=== PATIENT | male | born 1965 | race Caucasian/White ===

== ENCOUNTER 2019-05-05 23:06 | Emergency (ER) | payer SELFPAY ==
--- NOTE | 2019-05-05 23:16 | ED Physician Documentation ---
Eye Problem - HISTORIAN Historian: patient, spouse - HPI Chief Complaint: Eye Problems Additional Information: Patient presents to the ER with c/o eyes burning s/p messing with chemicals this morning while moving grass. He c/o bilateral eye pain with redness, erythema, and itchy. Checked pH of both eyes- 7. Onset: hours (This morning around 7:30) Associated symptoms: pain, burining, redness, sensitivity to light, blurred vision Location: both eyes Severity: moderate Apparent Injury: yes Context: chemical exposure Where: work - ROS CONST: no problems MS/SKIN/LYMPH: denies: weakness CVS/RESP: none EYES/ENT: none GI/: denies: nausea, vomiting NEURO: denies: headache - PAST HX Past History: diabetes Type 2, hypertension Immunizations: UTD. denies: tetanus Allergies/Adverse Reactions: Allergies Allergy/AdvReac Type Severity Reaction Status Date / Time No Known Allergies Allergy Verified 05/05/19 23:54 Home Medications: Ambulatory Orders Medication Instructions Recorded Lisinopril/Hydrochlorothiazide 1 each PO DAILY 05/07/19 [Zestoretic] Metformin HCl 500 mg PO DAILY 05/07/19 - SOCIAL HX Smoking History: non-smoker Alcohol Use: none Drug Use: none - FAMILY HX Family History: none - REVIEWED ASSESSMENTS Nursing Assessment Reviewed: Yes Vitals Reviewed: Yes Procedures - Eye Procedure Alcaine Drops Administered: Yes Eye Irrigated w/ Saline (ccs): 500 (500 each eye with emiliano lens) Antibiotic Oinment/Drps Admin: both eyes Progress: patient tolerated well ED Results Lab/Radiology - Orders Orders: ED Orders Category Date Time Status NORMAL SALINE @ 500 MLS/HR(500ml BOLUS) Med 05/05/19 23:11 Ordered 0.9 % Sodium Chloride [Normal Saline] 500 ml IV NOW NORMAL SALINE @ 500 MLS/HR(500ml BOLUS) Med 05/05/19 23:12 Ordered 0.9 % Sodium Chloride [Normal Saline] 500 ml IV NOW Tetracaine 0.5% Opth [Pontocaine Pf 0.5% Opth] Med 05/05/19 23:11 Once 2 drop OU NOW ONE Eye Problem Physical Exam - Physical Exam General Appearance: moderate distress Visual Acuity: see nursing assessment Eyelids: erythema (L), erythema (R) Conjunctiva and Sclera: injected (R), injected (L), exudate (R), exudate (L) Corneas: nml inspection, fluorescein dye uptake (L), fluorescein dye uptake (R), examined with fluorescein (R), examined with fluorescein (L) EOM: intact Pupils: equal Anterior Chambers: nml inspection Post Segments: nml funduscopic (R) Head/ENT: nml inspection, pharynx nml Skin: nml color, warm Neck/Back: nml inspection Respiratory: breath sounds normal CVS: heart sounds normal Neuro/Psych: oriented x3, neuro intact, mood/affect nml Discharge Clincal Impression: Acute chemical conjunctivitis of both eyes Referrals: Primary Doctor,No [Primary Care Provider] - 2 Days Additional Instructions: Well child check Bump on head Patient is playful and active Follow up with [employer] as needed Condition: Good Disposition: 01 HOME, SELF-CARE Decision to Admit: NO Decision Time: 23:53
[2019-05-05 23:54] VITALS: BP 144/69
[2019-05-05] MEDS: TETRACAINE 0.5% OPTH 5 ML BOTTLE OU ONE (23:55)
[2019-05-05] MEDS: 0.9 % SODIUM CHLORIDE 500 ML IV ONE ×2 (23:55→23:56)
[2019-05-05] MEDS: POLYMYXIN B SULF/TRIMETHOPRIM OPHTH 15 ML OU ONE (23:56)
[2019-05-05] MEDS: FLUORESCEIN SODIUM 1 STRIP TEST OU ONE (23:57)
[2019-05-05] MEDS: FLUORESCEIN SODIUM 1 STRIP TEST ONE (23:57)
[2019-05-06] MEDS: DIPH,PERTUSS(ACELL),TET VAC/PF 0.5 ML DISP.SYRIN IM ONE (00:04)
== END 2019-05-06 00:06 | disposition home or self-care (01) ==
LOC: ED 23:06
DX: H10.213 Acute toxic conjunctivitis, bilateral (principal)
CPT/HCPCS: 90471; 90715; 96360; 99284; J7060